=== PATIENT | male | born 1930 | race African-American/Black ===

== ENCOUNTER 2016-11-25 04:00 | Emergency (ER) | payer MEDICARE, OTHER ==
[~2016-11-25] VITALS: Ht 172.7 cm; Wt 77.0 kg
[~2016-11-25 04:00] MED LIST: AMLO10TA4 PO; ASPI-1159 PO; FERR-43 PO; GABA-531 PO; OLME1TAB18 PO; OMEP40CA34 PO; POTA10TA15 PO; SAXA5TAB PO
[2016-11-25] MEDS ORDERED: FAMOTIDINE 20MG/2ML VIAL IV STA (06:37)
[2016-11-25] MEDS ORDERED: SODIUM CHLORIDE 0.9% 1,000 ML IV ONE (06:37)
[2016-11-25 07:07] LABS: BASOPHILS % 1.3 % (0.0-2.0); EOSINOPHILS % 6.9 % (0.0-5.0); HEMATOCRIT. 31.7 % (42.0-52.0); HEMOGLOBIN. 10.6 g/dL (14.0-18.0); LYMPHOCYTES % 35.9 % (20.0-50.0); MEAN CORPUSCULAR HEMOGLOBIN 28.9 pg (28.0-32.0); MEAN CORPUSCULAR VOLUME 86.2 fL (80.0-94.0); MEAN PLATELET VOLUME 8.6 fl (7.4-10.4); MONOCYTES % 14.1 % (2.0-8.0); NEUTROPHILS % 41.8 % (40.0-76.0); PLATELET 160 x1000/uL (130-400); RED BLOOD CELL COUNT 3.68 mill/uL (4.7-6.1); RED CELL DISTRIBUTION WIDTH 14.8 % (11.6-14.6)
[2016-11-25 07:19] LABS: PROTHROMBIN TIME 10.7 sec
[2016-11-25 07:22] LABS: CARBON DIOXIDE 29 mEq/L (21-32); CHLORIDE 108 mEq/L (98-107)
[2016-11-25 07:42] LABS: CLARITY URINE CLEAR (CLEAR); COLOR URINE YELLOW (YELLOW); GLUCOSE URINE NEGATIVE (NEGATIVE); KETONES URINE NEGATIVE (NEGATIVE); LEUKOCYTE ESTERASE URINE NEGATIVE (NEGATIVE); NITRITE URINE NEGATIVE (NEGATIVE); OCCULT BLOOD URINE NEGATIVE (NEGATIVE); PROTEIN URINE NEGATIVE (NEGATIVE); SPECIFIC GRAVITY URINE 1.014 (1.005-1.030); UROBILINOGEN URINE 0.2 E.U./dL (0.2-1.0)
[2016-11-25] MEDS ORDERED: MAGNESIUM/ALUMINUM HYDROXIDE/SIMETHICONE 30ML UDC PO STA (07:58)
[2016-11-25] MEDS ORDERED: VISCOUS LIDOCAINE 2% 15 ML UDC MM ONE (08:00)
[2016-11-25] MEDS ORDERED: SODIUM CHLORIDE 0.9% 10ML VIAL ONE (10:59)
[2016-11-25] MEDS ORDERED: IOHEXOL-300 100 ML BOTTLE ONE (10:59)
[2016-11-25 12:52] VITALS: BP 159/82
== END 2016-11-25 12:54 | disposition home or self-care (01) ==
LOC: ER 04:01
DX: R10.13 Epigastric pain (principal); I10 Essential (primary) hypertension; E11.9 Type 2 diabetes mellitus without complications; F17.200 Nicotine dependence, unspecified, uncomplicated; F12.10 Cannabis abuse, uncomplicated; Z79.82 Long term (current) use of aspirin
CPT/HCPCS: 36415; 74177; 76705; 80053; 81003; 83690; 85025; 85610; 96361; 96374; 99285; A4216; J3490; J7030; Q9967

== ENCOUNTER 2017-02-19 04:29 | Emergency (ER) | payer MEDICARE, OTHER ==
[~2017-02-19] VITALS: Ht 172.7 cm; Wt 80.0 kg
[2017-02-19] MEDS ORDERED: FAMOTIDINE 20MG/2ML VIAL IV STA (06:04)
[2017-02-19] MEDS ORDERED: SODIUM CHLORIDE 0.9% 500 ML IV ONE (06:04)
[2017-02-19 06:34] LABS: HEMATOCRIT. 30.9 % (42.0-52.0); HEMOGLOBIN. 10.4 g/dL (14.0-18.0); MEAN CORPUSCULAR HEMOGLOBIN 29.6 pg (28.0-32.0); MEAN CORPUSCULAR VOLUME 88.1 fL (80.0-94.0); MEAN PLATELET VOLUME 9.3 fl (7.4-10.4); PLATELET 142 x1000/uL (130-400); RED BLOOD CELL COUNT 3.51 mill/uL (4.7-6.1); RED CELL DISTRIBUTION WIDTH 15.8 % (11.6-14.6)
[2017-02-19 06:45] LABS: BASOPHILS % 1.5 % (0.0-2.0); EOSINOPHILS % 4.3 % (0.0-5.0); INR 1.1; MONOCYTES % 11.6 % (2.0-8.0); NEUTROPHILS % 50.6 % (40.0-76.0); PARTIAL THROMBOPLASTIN TIME 28.5 sec (23.4-31.0); PROTHROMBIN TIME 11.4 sec (9.4-11.6)
[2017-02-19 06:46] LABS: CARBON DIOXIDE 29 mEq/L (21-32); CHLORIDE 109 mEq/L (98-107); TROPONIN I < 0.02 ng/mL (0.00-0.04)
[2017-02-19 06:59] LABS: CLARITY URINE CLEAR (CLEAR); COLOR URINE YELLOW (YELLOW); GLUCOSE URINE TRACE (NEGATIVE); KETONES URINE NEGATIVE (NEGATIVE); LEUKOCYTE ESTERASE URINE NEGATIVE (NEGATIVE); NITRITE URINE NEGATIVE (NEGATIVE); OCCULT BLOOD URINE NEGATIVE (NEGATIVE); PROTEIN URINE NEGATIVE (NEGATIVE); SPECIFIC GRAVITY URINE 1.018 (1.005-1.030); UROBILINOGEN URINE 0.2 E.U./dL (0.2-1.0)
[2017-02-19 08:10] VITALS: BP 152/82
== END 2017-02-19 08:14 | disposition home or self-care (01) ==
LOC: ER 05:08
DX: K80.80 Other cholelithiasis without obstruction (principal); E11.65 Type 2 diabetes mellitus with hyperglycemia; G89.29 Other chronic pain; E86.0 Dehydration; D64.9 Anemia, unspecified; I10 Essential (primary) hypertension; E78.00 Pure hypercholesterolemia, unspecified; F12.10 Cannabis abuse, uncomplicated; K21.9 Gastro-esophageal reflux disease without esophagitis; Z79.4 Long term (current) use of insulin; Z85.46 Personal history of malignant neoplasm of prostate; Z98.1 Arthrodesis status; Z90.79 Acquired absence of other genital organ(s)
CPT/HCPCS: 36415; 74010; 76705; 80053; 81001; 82962; 83690; 84484; 85025; 85610; 85730; 93005; 96361; 96374; 99285; J3490; J7040

== ENCOUNTER 2017-05-25 09:30 | Emergency (ER) | payer MEDICARE, OTHER ==
[~2017-05-25] VITALS: Ht 172.7 cm; Wt 84.0 kg
[2017-05-25] MEDS ORDERED: KETOROLAC 30MG/ML VIAL IV ONE (12:00)
[2017-05-25 12:03] LABS: BASOPHILS % 2.5 % (0.0-2.0); EOSINOPHILS % 5.1 % (0.0-5.0); HEMATOCRIT. 29.2 % (42.0-52.0); HEMOGLOBIN. 9.7 g/dL (14.0-18.0); LYMPHOCYTES % 32.9 % (20.0-50.0); MEAN CORPUSCULAR VOLUME 89.8 fL (80.0-94.0); MEAN PLATELET VOLUME 8.9 fl (7.4-10.4); NEUTROPHILS % 47.5 % (40.0-76.0); PLATELET 163 x1000/uL (130-400); RED BLOOD CELL COUNT 3.25 mill/uL (4.7-6.1); RED CELL DISTRIBUTION WIDTH 14.2 % (11.6-14.6)
[2017-05-25 12:18] LABS: CHLORIDE 108 mEq/L (98-107); TROPONIN I < 0.02 ng/mL (0.00-0.04)
[2017-05-25] MEDS ORDERED: KETOROLAC 15MG/ML VIAL IV ONE (13:45)
[2017-05-25 14:06] VITALS: BP 156/86
== END 2017-05-25 14:09 | disposition home or self-care (01) ==
LOC: ER 09:41
DX: R07.89 Other chest pain (principal); R20.2 Paresthesia of skin; E78.00 Pure hypercholesterolemia, unspecified; E11.9 Type 2 diabetes mellitus without complications; I10 Essential (primary) hypertension; F12.10 Cannabis abuse, uncomplicated; I25.119 Atherosclerotic heart disease of native coronary artery with unspecified angina pectoris; Z79.82 Long term (current) use of aspirin
CPT/HCPCS: 36415; 71045; 80048; 83880; 84484; 85025; 93005; 99285

== ENCOUNTER 2018-04-11 09:13 | Inpatient (IN) | payer MEDICARE, OTHER ==
[~2018-04-11] VITALS: Ht 170.2 cm; Wt 81.2 kg
[2018-04-11] VITALS (16 sets, daily range): BP systolic 134–188; BP diastolic 67–89
[2018-04-11] MEDS ORDERED: IODIXANOL 320MG/ML 100 ML BOTTLE IV ONE ×2 (09:59→11:35)
[2018-04-11] MEDS ORDERED: LIDOCAINE HCL 1% 20ML VIAL (Pyxis) INJ ONE (09:59)
[2018-04-11] MEDS ORDERED: ASPIRIN/SOD BICARB/CITRIC ACID 324MG TAB EFF ONE (10:42)
[2018-04-11] MEDS ORDERED: OXYB5TAB11 PO (10:43)
[2018-04-11] MEDS ORDERED: LOSA100T3 PO (10:43)
[2018-04-11] MEDS ORDERED: MIDAZOLAM HCL 2 MG/2 ML VIAL ONE (10:44)
[2018-04-11] MEDS ORDERED: FENTANYL CITRATE/PF 50MCG/ML 2ML VIAL ONE (10:45)
[2018-04-11] MEDS ORDERED: IOHEXOL-300 100 ML BOTTLE ONE (11:46)
[2018-04-11] MEDS ORDERED: ONDANSETRON HCL 4MG/2ML INJ ONE (12:20)
[2018-04-11] MEDS ORDERED: ONDANSETRON HCL 4MG/2ML INJ IV PRN (12:30)
[2018-04-11] MEDS ORDERED: ACETAMINOPHEN 325MG TABLET PO PRN (12:30)
[2018-04-11] MEDS ORDERED: SODIUM CHLORIDE 0.45% 1,000 ML IV ONE ×2 (12:30→17:30)
[2018-04-11] MEDS ORDERED: ATROPINE SULFATE 1MG/10ML SYR IV PRN (12:30)
[2018-04-11] MEDS ORDERED: FAMOTIDINE 20MG/2ML VIAL IV ONE (12:44)
[2018-04-11] MEDS ORDERED: NITROGLYCERIN OINT 1GM/INCH UDPKT TD ONE (12:45)
[2018-04-11] MEDS ORDERED: LIP40 MT (14:29)
[2018-04-11] MEDS ORDERED: ZOLPIDEM TARTRATE 5MG TABLET PO PRN (14:45)
[2018-04-11] MEDS ORDERED: HEPARIN SODIUM 1,000 UNIT/1ML VIAL IV ONE (15:20)
[2018-04-11] MEDS ORDERED: NITROGLYCERIN 50MCG/ML 10ML VIAL (CATH LAB) IV ONE (15:34)
[2018-04-11] MEDS ORDERED: NICARDIPINE 100MCG/ML 10ML VIAL (CATH LAB) IV ONE (15:34)
[2018-04-11] MEDS: NITROGLYCERIN OINT 1GM/INCH UDPKT TD SCH (17:31)
[2018-04-11] MEDS: LOSARTAN POTASSIUM 50 MG TABLET PO SCH (21:00)
[2018-04-11] MEDS: OMEPRAZOLE 20MG CAPSULE EXTENDED RELEASE PO SCH (21:01)
[2018-04-11] MEDS: AMLODIPINE 5MG TABLET PO SCH (21:02)
[2018-04-12] VITALS (10 sets, daily range): BP systolic 129–164; BP diastolic 56–108
[2018-04-12] MEDS: NITROGLYCERIN OINT 1GM/INCH UDPKT TD SCH ×2 (00:19→05:36)
[2018-04-12] MEDS: OMEPRAZOLE 20MG CAPSULE EXTENDED RELEASE PO SCH (05:36)
[2018-04-12 07:02] LABS: BASOPHILS % 1.2 % (0.0-2.0); EOSINOPHILS % 2.7 % (0.0-5.0); HEMATOCRIT. 32.8 % (42.0-52.0); HEMOGLOBIN. 11.2 g/dL (14.0-18.0); LYMPHOCYTES % 21.4 % (20.0-50.0); MEAN CORPUSCULAR HEMOGLOBIN 32.8 pg (28.0-32.0); MEAN CORPUSCULAR VOLUME 95.7 fL (80.0-94.0); MEAN PLATELET VOLUME 9.2 fl (7.4-10.4); MONOCYTES % 7.8 % (2.0-8.0); NEUTROPHILS % 66.9 % (40.0-76.0); PLATELET 134 x1000/uL (130-400); RED BLOOD CELL COUNT 3.42 mill/uL (4.7-6.1)
[2018-04-12 07:09] LABS: CHLORIDE 105 mEq/L (98-107)
[2018-04-12] MEDS ORDERED: BISACODYL 10MG SUPP PR SCH (08:02)
[2018-04-12] MEDS: AMLODIPINE 5MG TABLET PO SCH (08:30)
[2018-04-12] MEDS: LOSARTAN POTASSIUM 50 MG TABLET PO SCH (08:30)
[2018-04-12] MEDS: BISACODYL 5MG TABLET PO SCH ×2 (08:34→09:00)
[2018-04-12] MEDS ORDERED: BISACODYL 5MG TABLET PO PRN (09:00)
[2018-04-12] MEDS ORDERED: ASPIRIN 325MG TABLET PO SCH (09:00)
[2018-04-12 09:36] LABS: AMYLASE 110 IU/L (25-115)
[2018-04-12] MEDS ORDERED: POTASSIUM CHLORIDE 20MEQ TABLET SR PO NR (10:30)
[2018-04-12] MEDS ORDERED: MAGNESIUM CITRATE 300ML SOLUTION PO NR (10:30)
[2018-04-12] MEDS ORDERED: DOCUSATE SODIUM 250MG CAPSULE PO SCH (17:00)
[2018-04-12] MEDS ORDERED: CLOPIDOGREL 75MG TABLET PO NR (17:00)
== END 2018-04-12 17:13 | disposition home or self-care (01) | DRG 287 ==
LOC: CCL 09:13 → 3WST 09:14
PROVIDERS: ADMIT Specialist; ATTEND Specialist
PROC: 4A023N7 Measurement of Cardiac Sampling and Pressure, Left Heart, Percutaneous Approach (ICD-10-PCS; principal; 2018-04-11)
PROC: B2111ZZ Fluoroscopy of Multiple Coronary Arteries using Low Osmolar Contrast (ICD-10-PCS; 2018-04-11)
PROC: 02JA3ZZ Inspection of Heart, Percutaneous Approach (ICD-10-PCS; 2018-04-11)
DX: I25.10 Atherosclerotic heart disease of native coronary artery without angina pectoris (principal); I11.9 Hypertensive heart disease without heart failure; E78.5 Hyperlipidemia, unspecified; E11.9 Type 2 diabetes mellitus without complications; R11.2 Nausea with vomiting, unspecified; K21.9 Gastro-esophageal reflux disease without esophagitis; E87.6 Hypokalemia; K59.00 Constipation, unspecified; Z85.46 Personal history of malignant neoplasm of prostate; Z86.73 Personal history of transient ischemic attack (TIA), and cerebral infarction without residual deficits
CPT/HCPCS: 36415; 74018; 80048; 80076; 82150; 82962; 84484; 85347; 93005; 93458; 93571; C1769; C1887; C1893; J1644; J2250; J2405; J3010; J3490; Q9967; A4315

== ENCOUNTER 2018-07-23 03:29 | Inpatient (IN) | payer MEDICARE, OTHER ==
[~2018-07-23] VITALS: Ht 172.7 cm; Wt 80.3 kg
[~2018-07-23 03:29] MED LIST changes: -FERR-43 PO; -GABA-531 PO; +LIP40 MT; +LOSA100T3 PO; -OLME1TAB18 PO; -OMEP40CA34 PO; +OXYB5TAB11 PO; -POTA10TA15 PO; -SAXA5TAB PO
[2018-07-23] MEDS ORDERED: NITROGLYCERIN OINT 1GM/INCH UDPKT TD ONE (04:15)
[2018-07-23] MEDS ORDERED: ASPIRIN 81MG TABLET PO ONE (04:15)
[2018-07-23 04:24] LABS: BASOPHILS % 0.3 % (0.0-2.0); EOSINOPHILS % 2.2 % (0.0-5.0); HEMATOCRIT. 31.6 % (42.0-52.0); HEMOGLOBIN. 10.3 g/dL (14.0-18.0); LYMPHOCYTES % 21.1 % (20.0-50.0); MEAN CORPUSCULAR VOLUME 88.3 fL (80.0-94.0); MEAN PLATELET VOLUME 8.9 fl (7.4-10.4); MONOCYTES % 8.7 % (2.0-8.0); NEUTROPHILS % 67.7 % (40.0-76.0); PLATELET 166 x1000/uL (130-400); RED BLOOD CELL COUNT 3.57 mill/uL (4.7-6.1); RED CELL DISTRIBUTION WIDTH 16.4 % (11.6-14.6)
[2018-07-23 04:29] LABS: CHLORIDE 109 mEq/L (98-107)
[2018-07-23] MEDS ORDERED: DOCUSATE SODIUM 100MG CAPSULE PO PRN (08:15)
[2018-07-23] MEDS ORDERED: MAGNESIUM/ALUMINUM HYDROXIDE/SIMETHICONE 30ML UDC PO PRN (08:15)
[2018-07-23] MEDS ORDERED: CLONIDINE 0.1MG TABLET PO PRN (08:15)
[2018-07-23] MEDS ORDERED: LORAZEPAM 0.5MG TABLET PO PRN (08:15)
[2018-07-23] MEDS ORDERED: HYDROCODONE/ACETAMINOPHEN 5/325MG TABLET PO PRN (08:15)
[2018-07-23] MEDS ORDERED: DIPHENHYDRAMINE 50MG/ML VIAL IV PRN (08:15)
[2018-07-23] MEDS ORDERED: ONDANSETRON HCL 4MG/2ML INJ IV PRN (08:15)
[2018-07-23] MEDS ORDERED: HYDROCODONE/APAP 7.5/325MG 1 TAB TABLET PO PRN (08:15)
[2018-07-23] MEDS ORDERED: IPRATROPIUM/ALBUTEROL 0.5-3(2.5)MG/3ML NEB INH PRN (08:15)
[2018-07-23 08:49] LABS: PARTIAL THROMBOPLASTIN TIME 26.3 sec (23.4-31.0); PROTHROMBIN TIME 10.7 sec (9.6-11.0)
[2018-07-23 09:00] VITALS: BP 150/80
[2018-07-23] MEDS ORDERED: CLOP75TA16 MT (09:01)
[2018-07-23] MEDS: ACETAMINOPHEN 325MG TABLET PO PRN ×2 (09:46→21:30)
[2018-07-23] MEDS: AMLODIPINE 5MG TABLET PO SCH (09:46)
[2018-07-23] MEDS ORDERED: LOSARTAN POTASSIUM 100 MG TABLET PO ONE (10:45)
[2018-07-23 12:00] VITALS: BP 130/81
[2018-07-23] MEDS ORDERED: SODIUM CHLORIDE 0.45% 1,000 ML IV SCH (12:45)
[2018-07-23] MEDS: CLOPIDOGREL 75MG TABLET PO SCH (13:16)
[2018-07-23] MEDS: NITROGLYCERIN OINT 1GM/INCH UDPKT TD SCH ×2 (13:16→18:00)
[2018-07-23] MEDS: LOSARTAN POTASSIUM 100 MG TABLET PO SCH (13:16)
[2018-07-23] MEDS: ASPIRIN 81MG EC TABLET PO SCH ×2 (13:16→17:00)
[2018-07-23] MEDS ORDERED: IPRATROPIUM/ALBUTEROL 0.5-3(2.5)MG/3ML NEB HHN SCH (18:00)
[2018-07-23 20:00] VITALS: BP 125/72
[2018-07-23] MEDS: GUAIFENESIN 600MG ER TABLET PO SCH (20:13)
[2018-07-23] MEDS ORDERED: THROAT LOZENGES-BENZOCAINE/MENTH/CETYLPYRD CL LOZENGES MM PRN (21:00)
[2018-07-23] MEDS ORDERED: ATORVASTATIN CALCIUM 10MG TABLET PO SCH (21:00)
[2018-07-24] VITALS: BP 130/63
[2018-07-24] MEDS: NITROGLYCERIN OINT 1GM/INCH UDPKT TD SCH
[2018-07-24] MEDS: ACETAMINOPHEN 325MG TABLET PO PRN (03:32)
[2018-07-24 04:00] VITALS: BP 154/73
[2018-07-24 07:15] LABS: CHLORIDE 110 mEq/L (98-107)
[2018-07-24 07:18] LABS: BASOPHILS % 0.7 % (0.0-2.0); EOSINOPHILS % 2.5 % (0.0-5.0); HEMATOCRIT. 31.8 % (42.0-52.0); HEMOGLOBIN. 10.4 g/dL (14.0-18.0); LYMPHOCYTES % 16.2 % (20.0-50.0); MEAN CORPUSCULAR HEMOGLOBIN 28.9 pg (28.0-32.0); MEAN CORPUSCULAR VOLUME 88.4 fL (80.0-94.0); MEAN PLATELET VOLUME 9.5 fl (7.4-10.4); MONOCYTES % 7.7 % (2.0-8.0); NEUTROPHILS % 72.9 % (40.0-76.0); PLATELET 152 x1000/uL (130-400); RED CELL DISTRIBUTION WIDTH 16.5 % (11.6-14.6)
[2018-07-24 07:29] LABS: LDL CHOLESTEROL 59 mg/dL (5-100)
[2018-07-24 07:32] LABS: PHOSPHORUS 3.5 mg/dL (2.5-4.9)
[2018-07-24 07:34] LABS: CREATINE KINASE 72 IU/L (39-308); CREATINE KINASE MB FRACTION < 1.0 ng/mL (0.5-3.6); HDL CHOLESTEROL 68 mg/dL (40-59)
[2018-07-24 08:00] VITALS: BP 180/84
[2018-07-24] MEDS: LOSARTAN POTASSIUM 100 MG TABLET PO SCH (08:34)
[2018-07-24] MEDS: AMLODIPINE 5MG TABLET PO SCH (08:34)
[2018-07-24] MEDS: ASPIRIN 81MG EC TABLET PO SCH (08:34)
[2018-07-24] MEDS: GUAIFENESIN 600MG ER TABLET PO SCH (08:34)
[2018-07-24] MEDS: CLOPIDOGREL 75MG TABLET PO SCH (08:35)
[2018-07-24 12:00] VITALS: BP 147/79
== END 2018-07-24 12:30 | disposition home or self-care (01) | DRG 205 ==
LOC: ER 03:29 → EDBEDREQ 04:27 → EDBEDREQTM 04:27 → 8WST 04:52 → ENRESERV 07:23
PROVIDERS: ADMIT Family Medicine Adult Medicine; ATTEND Family Medicine Adult Medicine
DX: M94.0 Chondrocostal junction syndrome [Tietze] (principal); J96.00 Acute respiratory failure, unspecified whether with hypoxia or hypercapnia; D64.9 Anemia, unspecified; E11.9 Type 2 diabetes mellitus without complications; E78.00 Pure hypercholesterolemia, unspecified; E78.5 Hyperlipidemia, unspecified; F12.90 Cannabis use, unspecified, uncomplicated; I10 Essential (primary) hypertension; I25.10 Atherosclerotic heart disease of native coronary artery without angina pectoris; J40 Bronchitis, not specified as acute or chronic; Z96.653 Presence of artificial knee joint, bilateral; R56.9 Unspecified convulsions; Z85.46 Personal history of malignant neoplasm of prostate; Z86.73 Personal history of transient ischemic attack (TIA), and cerebral infarction without residual deficits; Z87.891 Personal history of nicotine dependence; Z90.49 Acquired absence of other specified parts of digestive tract
CPT/HCPCS: 36415; 71045; 78582; 80061; 82550; 82553; 83735; 83880; 84100; 84443; 84484; 85379; 93005; 97162; 99285; A9558; J7620

== ENCOUNTER 2018-12-16 12:00 | Emergency (ER) | payer MEDICARE, OTHER ==
[~2018-12-16] VITALS: Ht 172.7 cm; Wt 95.0 kg
[~2018-12-16 12:00] MED LIST changes: -ASPI-1159 PO; +CLOP75TA4 MT; -OXYB5TAB11 PO
[2018-12-16 12:15] VITALS: BP 127/70
== END 2018-12-16 15:00 | disposition left against medical advice (07) ==
LOC: ER 14:24
DX: Z53.21 Procedure and treatment not carried out due to patient leaving prior to being seen by health care provider (principal)
CPT/HCPCS: 99281

== ENCOUNTER 2020-04-14 19:22 | Emergency (ER) | payer OTHER ==
[~2020-04-14] VITALS: Ht 180.3 cm; Wt 81.0 kg
[2020-04-14 19:24] VITALS: BP 160/80
== END 2020-04-14 20:20 | disposition left against medical advice (07) ==
LOC: ER 19:22 → CANBEDREQ 23:06
DX: R07.89 Other chest pain (principal); I11.9 Hypertensive heart disease without heart failure; E11.9 Type 2 diabetes mellitus without complications; E78.00 Pure hypercholesterolemia, unspecified; J45.909 Unspecified asthma, uncomplicated; Z87.891 Personal history of nicotine dependence
CPT/HCPCS: 93005; 99283